=== PATIENT | female | born 1960 | race Caucasian/White ===

== ENCOUNTER → 2016-11-14 | Outpatient (CLI) | payer OTHER ==
[~2016-11-14] MED LIST: ATIVAN0.5 MG PO; FLAGYL500 MG PO; NOHOMEMEDICATIONS; PHENERGAN 25 MG25 M1 PO; PROTONIX 20 MG20 M1 PO; ZOFRAN 4 MG ORAL4 M1 DIS
== END ==
LOC: CAT 08:10
DX: Z13.6 Encounter for screening for cardiovascular disorders (principal)

== ENCOUNTER → 2016-11-14 | Outpatient (CLI) | payer BC, OTHER ==
--- NOTE | ~2016-11-14 | EXE ---
[facility] [place] [address] STRESS ECHOCARDIOGRAM Name: KRISH WELCH GALLITO Room #: REG CL [facility]#: [id number] Admission: 11/14/16 Attend Phys: Guillermo Simon, Discharge: Date of : 60 Date of Service: 11/15/16 1101 Report #: [id number] THIS REPORT FOR: //name// APPROVED REPORT Exam: Stress Echocardiogram Reason for Exam: Chest pain Patient Location: Out-Patient Stress Nurse: Brittney Torrez HR: 60 bpm Medical History Allergies: Stadal Cardiac Risk Factors: FHX of CAD Exercise History: Physically active Procedure The patient underwent an Exercise Stress Test using the French Protocol. Blood pressure, heart rate, and EKG were monitored. An Echocardiogram was performed by sterile supply technician in four stages in quad fashion. At peak stress, four selected images were obtained and placed side by side with resting images for comparison. Testing Details Test: Exercise stress testing was performed using a French protocol. HR Resting HR: 60 bpm Max Heart Rate (APMHR): 164 bpm Max HR Achieved: 171 bpm Target HR (85% APMHR): 139 bpm % of APMHR: 104 Recovery HR: 83 bpm HR response to stress: Normal HR response to stress BP Resting BP: 119/89 mmHg Max BP: 146/80 mmHg Recovery BP: 122/71 mmHg ECG Resting ECG: Sinus Rhythm Stress ECG: Sinus Rhythm Recovery ECG: Sinus Rhythm Clinical [facility] [address] [place] [address] STRESS ECHOCARDIOGRAM Name: KRISH WELCH Room #: REG [facility]#: [id number] Admission: 11/14/16 Attend Phys: Guillermo Simon, Discharge: Date of : 60 Date of Service: 11/15/16 1101 Report #: [id number] Reason for Termination: Dyspnea, fatigue Stress Symptoms: Dyspnea Exercise duration: 11 min Exercise capacity: 13.4 METs Stress ECG Conclusion 1.SUBJECTIVELY NEGATIVE FOR ISCHEMIA 2. ELECTROCARDIOGRAPHICALLY NEGATIVE FOR ISCHEMIA 3. ADEQUATE FUNCTIONAL CAPACITY Pre-Stress Echo The resting Echocardiogram showed normal left ventricular contractility with an estimated Ejection Fraction of about 55%. Mild MR, Mild to moderate TR with a regurgitation velocity of 2.6m/s; PPG 27mmHg. Post-Stress Echo The stress Echocardiogram showed normal left ventricular contractility with an estimated Ejection Fraction of about 65-70%. Clinical Normal augmentation of myocardial wall segments using a 17 segment model. Conclusion 1. LOW RISK STUDY Other Information Study Quality: Good <Conclusion> 1. LOW RISK STUDY <ELECTRONICALLY SIGNED> By: Babak Alexandra MD 11/15/16 1101 110 1101 Babak Alexandra MD /INF
== END ==
LOC: CANPRECLI → CV
DX: R07.9 Chest pain, unspecified (principal)

== ENCOUNTER → 2020-01-09 | Outpatient (CLI) | payer OTHER | LOC: CAT 11:10 | DX: Z13.6 Encounter for screening for cardiovascular disorders (principal); E78.00 Pure hypercholesterolemia, unspecified; I25.10 Atherosclerotic heart disease of native coronary artery without angina pectoris ==

== ENCOUNTER → 2021-06-15 | Outpatient (CLI) | payer BC, OTHER | LOC: SJCVCIMAG 13:46 | PROVIDERS: ATTEND Internal Medicine Cardiovascular Disease | DX: Z01.810 Encounter for preprocedural cardiovascular examination (principal); I10 Essential (primary) hypertension; E78.5 Hyperlipidemia, unspecified; R06.00 Dyspnea, unspecified; R53.83 Other fatigue; Z86.73 Personal history of transient ischemic attack (TIA), and cerebral infarction without residual deficits; Z82.49 Family history of ischemic heart disease and other diseases of the circulatory system ==